=== PATIENT | female | born 2005 | race African-American/Black ===

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

== ENCOUNTER 2023-03-05 12:46 | Outpatient (AMB) | payer MEDICAID, SELFPAY ==
[2023-03-05 12:48] VITALS: BP 137/63; PULSE 80; TEMP 36; O2SAT 97; BMI 28.7
--- NOTE | 2023-03-05 12:48 | A.OFFVIS_ITS ---
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 Patient reports that in the end of June,, she had preprandial abdominal pain that may have gotten better with eating, but when the pain persisted, she came to the emergency department and was evaluated. Ultrasound at that time demonstrated a mobile gallstone, however her labs and LFTs were normal, so she was discharged. The following week, on 07/16/22, she experienced another episode of pain which she felt was after eating, she was seen in the emergency department, and admitted to the hospitalist service with surgical consultation. Because she had eaten, her ultrasound at that time did not clearly defined gallstones so a CCK HIDA was ordered which the patient reports she slept through and it demonstrated a normal ejection fraction absolutely no abdominal pain from the CCK injection. She was given a diet and discharged with follow-up to me. The patient denies interval change in notes no further episodes of abdominal pain. She noted that she was suffering from hair loss and question whether she could have gastritis related to the stress that was occurring academically at that time. 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 She notes that she is trying to eat healthy but having no pain or problems related to fried or fatty foods. Patient denies any episodes of pain since that time. She notes coronary artery disease and cholesterol issues affecting her father but no one else in the family has a history of gallbladder disease. The patient continues to deny any abdominal pain and otherwise denies interval change to her health history. She reports the usual stressors of school and is in nursing school at this time but is having no additional episodes of abdominal pain. [facility] Social History Alcohol intake: never Advance Directives Date on File: 07/19/22 service: No Review of Systems Const All systems reviewed & are unremarkable except as noted in HPI and below Reports as per HPI Physical Exam Vital Signs: Last Vital Signs Temp 96.8 F 03/05/23 12:48 Pulse 80 03/05/23 12:48 BP 137/63 03/05/23 12:48 Pulse Ox 97 03/05/23 12:48 Oxygen Delivery Method Room Air 03/05/23 12:48 BMI result Body Mass Index 28.7 On exam, the patient is nontoxic and in good spirits Her sclerae anicteric She is in no acute respiratory distress Abdomen is soft with no tenderness. Results Reviewed Results Reviewed: Diagnostic imaging 07/08/2022 ultrasound demonstrated small mobile gallstones and a 4 mm CBD 07/17/2022 ultrasound demonstrated a contracted gallbladder with no pericholecystic fluid. 2mm CBD & sludge versus stone was present CCK HIDA from 07/17/2022 showed a normal ejection fraction of 51% and the patient noted that she had absolutely no pain and fell asleep during the study, CCK did not evoke an episode of biliary colic Repeat ultrasound from 09/01/2022 shows unchanged gallbladder polyps vs adherent gallstones and a 3 mm common bile duct. 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 It is certainly possible but we did review the fact that she has gallstones and if she develops postprandial colicky pain, she should contact me. She added that she has been eating fried foods, fatty foods such as ice cream and pizza and has had no ill effects. Options of scheduling a follow-up in 2-3 months verses p.r.n. phone call for return of pain were offered and the patient would prefer to call if needed. She is given a card and will contact me if she has need to be re-evaluated. Coding Level of Care Code Est Pt Level 4 (71341) Diagnoses Gall stones K80.20 Gallbladder polyp K82.4 Abdominal pain, RUQ R10.11
== END 2023-03-05 13:12 | disposition home or self-care (01) ==
PROVIDERS: Visit Provider Surgery
DX: K80.20 Calculus of gallbladder without cholecystitis without obstruction (principal); R10.11 Right upper quadrant pain
CPT/HCPCS: 99214

== ENCOUNTER → 2023-03-05 12:46 | Outpatient (BNVA) | payer MEDICAID, SELFPAY | PROVIDERS: Visit Provider Surgery | DX: K80.20 Calculus of gallbladder without cholecystitis without obstruction (principal); K82.4 Cholesterolosis of gallbladder; R10.11 Right upper quadrant pain | CPT/HCPCS: 99212 ==

== ENCOUNTER 2023-03-16 09:48 | Outpatient (REF) | payer MEDICAID, SELFPAY ==
[2023-03-16 12:56] LABS: CT PCR NOT DETECTED (Not Detect.); NG PCR NOT DETECTED (Not Detect.)
[2023-03-19 16:19] LABS: TS Negative Control Passed; TS Panel A 0; TS Panel B 2; TS Positive Control Passed; TSpotTB Negative (Negative)
== END 2023-03-16 09:49 | disposition home or self-care (01) ==
LOC: HO.HHCL 09:48
PROVIDERS: Visit Provider Family Medicine
DX: Z11.3 Encounter for screening for infections with a predominantly sexual mode of transmission (principal); Z11.1 Encounter for screening for respiratory tuberculosis
CPT/HCPCS: 0353U; 86481

== ENCOUNTER 2024-01-21 10:23 | Outpatient (AMB) | payer MEDICAID, SELFPAY ==
[2024-01-21 10:27] VITALS: BP 128/73; PULSE 97; BMI 33.5
--- NOTE | 2024-01-21 10:27 | A.OFFVIS_ITS ---
Vital Signs 01/21/24 10:27 Height 5 ft 4 in Weight 195 lb BMI 33.5 BP 128/73 Blood Pressure Location Rt brachial Position Sitting Pulse 97 Intake Visit Reasons: appendicitis Intake Note: Patient here for appendicitis. Was visiting parents in [place]. Developed severe abdominal pain. Went to ER on 01-18-24. Patient c/o: pain has subsided. Was treated with amoxicillin. 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 She was treated conservatively with antibiotics patient lives in this area and now presents here for further evaluation. She has complete resolution of her abdominal symptoms. She has tolerating a diet. He is having regular bowel habits. She has completing a course of antibiotics. Chart was reviewed the patient evaluate [facility] Social History Alcohol intake: never Advance Directives Date on File: 07/19/22 service: No Physical Exam Vital Signs: Last Vital Signs Pulse 97 01/21/24 10:27 BP 128/73 01/21/24 10:27 BMI result Body Mass Index 33.5 GI Other: Abdomen mildly corpulent, soft, completely benign. Assessment & Plan Assessment & Plan (1) Abdominal pain: Code(s): R10.9 - Unspecified abdominal pain Category: Surgical Plan Patient is doing well status post treatment for early appendicitis conservatively from [place]. Patient and I reviewed that a proximally 30 % of time the appendicitis may recurrent should this happen, she has been instructed to call the office or go to the ER. All questions answered. Patient will otherwise follow-up p.r.n.. Coding Level of Care Code New Pt Level 4 (17818) Diagnoses Abdominal pain R10.9
== END 2024-01-21 10:35 | disposition home or self-care (01) ==
PROVIDERS: PCP Family Medicine; Referring Provider Family Medicine; Visit Provider Surgery
DX: R10.9 Unspecified abdominal pain (principal)
CPT/HCPCS: 99203

== ENCOUNTER → 2024-01-21 10:23 | Outpatient (BNVA) | payer MEDICAID, SELFPAY | PROVIDERS: PCP Family Medicine; Visit Provider Surgery | DX: R10.9 Unspecified abdominal pain (principal) | CPT/HCPCS: 99202 ==

== ENCOUNTER 2024-03-27 16:27 | Outpatient (REF) | payer MEDICAID, SELFPAY ==
[2024-03-27 17:58] LABS: Bacterial Vaginosis PCR NEGATIVE (Negative); Candida Group PCR NOT DETECTED (Not Detect); Candida glab krusei PCR NOT DETECTED (Not Detect); Trichomonas vaginalis PCR NOT DETECTED (Not Detect)
== END 2024-03-27 16:28 | disposition home or self-care (01) ==
LOC: HO.HHCLNP 16:27
PROVIDERS: Visit Provider Internal Medicine
DX: N89.8 Other specified noninflammatory disorders of vagina (principal)
CPT/HCPCS: 0352U

== ENCOUNTER 2024-06-12 12:29 | Outpatient (REF) | payer MEDICAID, SELFPAY ==
[2024-06-13 15:10] LABS: H Pylori Breath Test Positive (Negative)
== END 2024-06-12 12:30 | disposition home or self-care (01) ==
LOC: HO.LNP 12:29
PROVIDERS: PCP Family Medicine; Visit Provider Nurse Practitioner
DX: R10.13 Epigastric pain (principal); R14.0 Abdominal distension (gaseous); K21.9 Gastro-esophageal reflux disease without esophagitis
CPT/HCPCS: 83013; 99212

== ENCOUNTER 2024-06-12 12:29 | Outpatient (AMB) | payer MEDICAID, SELFPAY ==
[2024-06-12 12:32] VITALS: BP 113/61; PULSE 80; BMI 33.3
--- NOTE | 2024-06-12 12:32 | MHC.OFFVIS ---
Vital Signs 06/12/24 12:32 Height 5 ft 4 in Weight 194 lb 0.108 oz BMI 33.3 BP 113/61 Blood Pressure Location Rt brachial Position Sitting Pulse 80 Intake Visit Reasons: abdominal pain Intake Note: Jenny presents to office for evaluation and management of abdominal pain. CC: Patient c/o epigastric pain on and off, pain scale when it happens is 8/10. Patient reports having occasional acid reflux, diarrhea sometimes, and abdominal bloating. 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 She is referred by [facility]. PMX History of appendicitis Gallbladder polyps with negative HIDA scan * SURGICAL HISTORY Pt denies * ALLERGIES: NKDA * [employer] LABS: None since 2021 US ABD 09/01/22 FINDINGS: PANCREAS: Visualized portions of the pancreas are unremarkable. The pancreatic tail is obscured by bowel gas. LIVER: Normal. The liver is normal in size. The liver contour is normal. Parenchymal echogenicity is normal. No focal hepatic lesion. There is no intrahepatic biliary duct dilatation seen. GALLBLADDER: Few tiny gallbladder polyps measuring up to 3 mm The gallbladder is physiologically distended without evidence of stones, sludge, wall thickening or pericholecystic fluid. COMMON BILE DUCT: Normal in caliber measuring 0.3 cm in diameter. RIGHT KIDNEY: Normal. No hydronephrosis. No renal calculi or focal parenchymal lesions. The kidney measures 9.8 cm in maximum dimension. FREE FLUID: None. US/US abdomen limited IMPRESSION: Few tiny gallbladder polyps measuring up to 3 mm new from prior. If patient has no risk factors for gallbladder malignancy or symptoms attributable to the gallbladder, follow-up recommendations are repeat ultrasound at one, 3, and 5 years. If patient has symptoms attributable the gallbladder, and there are no alternative causes for the symptoms consider surgical consultation. If patient has risk factors for primary gallbladder malignancy recommend follow-up ultrasound at 6 months, and 1, 2, 3, 4, and 5 years. HIDA SCAN 07/17/22 IMPRESSION: Visualization of the gallbladder is evidence of a patent cystic duct and strong evidence against the diagnosis of acute cholecystitis. The common bile duct is patent. Gallbladder emptying and ejection fraction are normal. Liver function appears normal. TODAY'S VISIT Onset about 2 years ago she started having severe stomach pain and she was told she had gallstones in the ER. But they did not feel this was the cause of the pain, but she was referred to a surgeon and had a negative HIDA scan. Then she did not have any pain for 2 years. This past summer she had acute appendicitis in [place]. She had N/V and pain in [place] that moved. Surgery was recommended but she wanted to get back to [place] before having it. She was tx'ed with an abx and she again saw a surgeon and she was told that she should not be worried unless the pain returns s/p abx. More recently the pain has been more in the high epigastric area and will start when she begins eating and last for few minutes. It is described as sharp and stabbing initially and sometimes if she waits a few minutes for it to subside she will be able to continue eating but not always. She can identify too many particular foods that set it off although she has noted that it is worse if she drinks coffee on an empty stomach. She has been trying to eat more healthfully because she was worried about the possible gallstones so she has been eating more vegetables salads and staying away from the junk food. She does not like to eat a lot of meat but she does eat some. She also has quite a lot of abdominal bloating that occurs intermittently. When it happens her stomach will become bloated periumbilically and will be quite hard and sore to the touch. She admits that she has quite a lot of trouble ?releasing my gases.? In that she has not having flatulence or burping very often. Sometimes she will take a seltzer water or something similar to try to expedite the process. At time she will also have global cramping and diarrhea likely mediated by the gas trapping. There has been no new medications, no other severe diet changes, and no severe life stresses beyond the stress of being a college student that are contributing factors. There is no known family history of similar GI problems although there is a family history of colon cancer in her grandfather quite later in life. To date, she has not yet been educated about the GERD diet although she is aware that spicy foods sodas and coffee certainly are something that are worse for this situation. She also has not been educated about FODMAP foods to try to find the triggers that are causing her bloating and gas trapping. We will get her information on both of these. For now I think were going to order a barium swallow so we can make sure there is no physiologic/anatomic problems that are severe contributing to this and will also get an upper endoscopy along with an H pylori breath test. She has not had a trial of any acid reducing medication so will start her on famotidine and she can take this as needed and this will help us determine, if it is helpful, if were on the right track thinking that this is acid reflux. While I appreciate the fact that she has had some abnormal findings in terms of a possible inflamed appendix and possible gallstones we need to be careful not to assume that these are the root causes of what she is experiencing. I am not completely convinced since the symptoms really do not correlate well to traditional cholecystitis or appendicitis. Her normal bowel movement is twice a day and this really has not deviated. She has gained weight recently which is somewhat to be expected going through school and this could be contributing to GERD as well. ROV 4 weeks PFSH Medical History Abdominal pain, RUQ Surgical History Abdominal pain No pertinent past surgical history Family History Paternal Grandfather Colon cancer Social History Alcohol intake: never Patient Tobacco Use Status: Never used Tobacco Advance Directives Date on File: 07/19/22 service: No Review of Systems Const Denies fatigue, Denies fever(s), Denies night sweats, Denies poor appetite, Reports weight gain and Denies weight loss ENT Reports Normal hearing present, Denies dental pain, Denies dysphagia, Denies hearing loss, Denies mouth pain, Denies odynophagia, Denies throat swelling, Denies tongue swelling and Reports other (Dentition adequate) Card Reports no additional complaints Resp Reports no additional complaints GI Details: Denies abdominal pain, Denies melena, Reports bloating, Denies hematochezia, Denies constipation, Denies GI cramping, Denies dysphagia, Denies excessive flatus, Denies early satiety, Reports heartburn, Denies diarrhea, Denies nausea, Denies odynophagia, Denies vomiting and Denies hematemesis Skin/Breast Denies pruritus, Denies lesions, Denies rash and Denies jaundice Neuro Reports Normal hearing present and Denies Abnormal speech present Endo Denies fatigue Aller/Immun Denies throat swelling and Denies tongue swelling Physical Exam Vital Signs: Last Vital Signs Pulse 80 06/12/24 12:32 BP 113/61 06/12/24 12:32 BMI result Body Mass Index 33.3 Const General: cooperative, no acute distress, well developed and well groomed Nutritional Appearance: well nourished and overweight Orientation/consciousness: oriented to person, oriented to place and oriented to time Limitations: No language barrier HEENT Head: Yes normocephalic and Yes atraumatic Eyes General: appearance normal, both eyes and all related structures Pupils: Equal, round and reactive pupils present Neck Neck: Yes normal visual inspection and Yes no lymphadenopathy Thyroid: Thyroid normal Resp Effort & Inspection: normal respiratory effort and able to speak in complete sentences Auscultation: clear to auscultation bilaterally Cardio Rate: regular rate Rhythm: regular rhythm Heart sounds: Normal, physiologic split S2 sound present Peripheral pulses: radial pulses present and posterior tibial pulses present GI Inspection: No distended, No Abdominal panniculus present and Yes obesity Palpation (GI): Soft to palpation, nontender, no guarding, not rigid and No hepatosplenomegaly present Percussion: Yes normal to percussion Auscultation: normal bowel sounds Rectal Exam - Female: deferred Skin General skin exam: no rashes or lesions noted, turgor normal, skin not dry, no jaundice, No spider nevi and no striae Rashes: no rashes Nails: normal Neuro General: oriented to person, oriented to place and oriented to time Cranial nerves: Yes Equal, round and reactive pupils present and Yes Normal hearing present Speech: No Abnormal speech present Extrem General: Yes normal to inspection, No clubbing, No cyanosis and No edema Psych Appearance: grossly normal and well kempt Mental Status: mental status grossly normal Speech and movement: Normal speech and movement present Affect: normal affect Attitude: cooperative Thought process: Normal thought process present and not confabulating Thought content: Normal thought content present Insight: Fair insight present (Psych) Judgement: Fair judgement present (Psych) Results Reviewed Results Reviewed: US ABD 09/01/22 FINDINGS: PANCREAS: Visualized portions of the pancreas are unremarkable. The pancreatic tail is obscured by bowel gas. LIVER: Normal. The liver is normal in size. The liver contour is normal. Parenchymal echogenicity is normal. No focal hepatic lesion. There is no intrahepatic biliary duct dilatation seen. GALLBLADDER: Few tiny gallbladder polyps measuring up to 3 mm The gallbladder is physiologically distended without evidence of stones, sludge, wall thickening or pericholecystic fluid. COMMON BILE DUCT: Normal in caliber measuring 0.3 cm in diameter. RIGHT KIDNEY: Normal. No hydronephrosis. No renal calculi or focal parenchymal lesions. The kidney measures 9.8 cm in maximum dimension. FREE FLUID: None. US/US abdomen limited IMPRESSION: Few tiny gallbladder polyps measuring up to 3 mm new from prior. If patient has no risk factors for gallbladder malignancy or symptoms attributable to the gallbladder, follow-up recommendations are repeat ultrasound at one, 3, and 5 years. If patient has symptoms attributable the gallbladder, and there are no alternative causes for the symptoms consider surgical consultation. If patient has risk factors for primary gallbladder malignancy recommend follow-up ultrasound at 6 months, and 1, 2, 3, 4, and 5 years. HIDA SCAN 07/17/22 IMPRESSION: Visualization of the gallbladder is evidence of a patent cystic duct and strong evidence against the diagnosis of acute cholecystitis. The common bile duct is patent. Gallbladder emptying and ejection fraction are normal. Liver function appears normal. Assessment & Plan Assessment & Plan (1) Epigastric pain: Code(s): R10.13 - Epigastric pain Category: Medical (2) Abdominal bloating: Code(s): R14.0 - Abdominal distension (gaseous) Category: Medical (3) GERD (gastroesophageal reflux disease): Code(s): K21.9 - Gastro-esophageal reflux disease without esophagitis Category: Medical Plan Onset about 2 years ago she started having severe stomach pain and she was told she had gallstones in the ER. But they did not feel this was the cause of the pain, but she was referred to a surgeon and had a negative HIDA scan. Then she did not have any pain for 2 years. This past summer she had acute appendicitis in [place]. She had N/V and pain in [place] that moved. Surgery was recommended but she wanted to get back to [place] before having it. She was tx'ed with an abx and she again saw a surgeon and she was told that she should not be worried unless the pain returns s/p abx. More recently the pain has been more in the high epigastric area and will start when she begins eating and last for few minutes. It is described as sharp and stabbing initially and sometimes if she waits a few minutes for it to subside she will be able to continue eating but not always. She can identify too many particular foods that set it off although she has noted that it is worse if she drinks coffee on an empty stomach. She has been trying to eat more healthfully because she was worried about the possible gallstones so she has been eating more vegetables salads and staying away from the junk food. She does not like to eat a lot of meat but she does eat some. She also has quite a lot of abdominal bloating that occurs intermittently. When it happens her stomach will become bloated periumbilically and will be quite hard and sore to the touch. She admits that she has quite a lot of trouble ?releasing my gases.? In that she has not having flatulence or burping very often. Sometimes she will take a seltzer water or something similar to try to expedite the process. At time she will also have global cramping and diarrhea likely mediated by the gas trapping. There has been no new medications, no other severe diet changes, and no severe life stresses beyond the stress of being a college student that are contributing factors. There is no known family history of similar GI problems although there is a family history of colon cancer in her grandfather quite later in life. To date, she has not yet been educated about the GERD diet although she is aware that spicy foods sodas and coffee certainly are something that are worse for this situation. She also has not been educated about FODMAP foods to try to find the triggers that are causing her bloating and gas trapping. We will get her information on both of these. For now I think were going to order a barium swallow so we can make sure there is no physiologic/anatomic problems that are severe contributing to this and will also get an upper endoscopy along with an H pylori breath test. She has not had a trial of any acid reducing medication so will start her on famotidine and she can take this as needed and this will help us determine, if it is helpful, if were on the right track thinking that this is acid reflux. While I appreciate the fact that she has had some abnormal findings in terms of a possible inflamed appendix and possible gallstones we need to be careful not to assume that these are the root causes of what she is experiencing. I am not completely convinced since the symptoms really do not correlate well to traditional cholecystitis or appendicitis. Her normal bowel movement is twice a day and this really has not deviated. She has gained weight recently which is somewhat to be expected going through school and this could be contributing to GERD as well. ROV 4 weeks Orders: Orders H Pylori Breath Test 06/12/24 R10.13 - Epigastric pain, R14.0 - Abdominal distension (gaseous) Comprehensive Met. Panel 06/13/24 R10.13 - Epigastric pain, R14.0 - Abdominal distension (gaseous) EGD - GI Use Only 06/12/24 R10.13 - Epigastric pain, R14.0 - Abdominal distension (gaseous) [place] barium swallow 06/12/24 R10.13 - Epigastric pain, R14.0 - Abdominal distension (gaseous) Complete Blood Count Auto Diff 06/13/24 R10.13 - Epigastric pain, R14.0 - Abdominal distension (gaseous) Medications: New famotidine (Pepcid) 40 mg PO DAILY 30 tabs 6RF K21.9 - Gastro-esophageal reflux disease without esophagitis Coding Level of Care Code Est Pt Level 4 (06315) Diagnoses Epigastric pain R10.13 Abdominal bloating R14.0 GERD (gastroesophageal reflux disease) K21.9
== END 2024-06-12 13:58 | disposition home or self-care (01) ==
LOC: HO.HGI 12:30
PROVIDERS: PCP Family Medicine; Visit Provider Nurse Practitioner
DX: R10.13 Epigastric pain (principal); R14.0 Abdominal distension (gaseous); K21.9 Gastro-esophageal reflux disease without esophagitis
CPT/HCPCS: 99214

== ENCOUNTER 2024-06-13 16:24 | Outpatient (REF) | payer MEDICAID, SELFPAY ==
[2024-06-13 16:41] LABS: MANUAL DIFF FLAG NO
[2024-06-13 16:55] LABS: Basophils Percent Auto 0.5 % (0-2); Eosinophils Absolute Auto 0.1 X10*3/uL (0.0-0.4); Eosinophils Percent Auto 1.5 % (0-4); Hematocrit 40.4 % (37.0-47.0); Hemoglobin 12.9 g/dl (12.0-16.0); Imm Gran Abs Auto 0.02 X10*3/uL (0.00-0.03); Imm Gran Pct Auto 0.3 % (0.0-0.4); Lymphocytes Absolute Auto 3.1 X10*3/uL (1.2-4.9); Lymphocytes Percent Auto 50.6 % (20-40); Mean Corpuscular HGB Conc 31.9 g/dl (31.0-35.0); Mean Corpuscular Hemoglobin 26.5 pg (27.0-33.0); Monocytes Absolute Auto 0.4 X10*3/uL (0.1-1.2); Monocytes Percent Auto 6.6 % (2-11); Neutrophils Absolute Auto 2.5 x10*3/uL (2.0-8.3); Neutrophils Percent Auto 40.5 % (45-73); Platelet Count 266 X10*3/uL (160-400); Red Blood Count 4.87 X10*6/uL (4.20-5.50); Red Cell Distribution Width 12.9 % (11.0-16.0); White Blood Count 6.2 X10*3/uL (4.8-10.8)
[2024-06-13 17:32] LABS: Alanine Aminotransferase 12 U/L (0-31); Albumin Level 4.2 g/dL (3.5-5.0); Alkaline Phosphatase 52 U/L (39-117); Anion Gap 14 (12-20); Aspartate Amino Transferase 16 U/L (5-31); Bilirubin Total 0.3 mg/dL (0.0-1.0); Blood Urea Nitrogen 13 mg/dL (9-16); Calcium 9.2 mg/dL (8.4-10.2); Carbon Dioxide 23 mmol/L (22-29); Chloride 109 mmol/L (96-108); Estimated Glomerular Filt Rate > 60; Glucose Random 93 mg/dL (60-115); Potassium 4.4 mmol/L (3.3-5.1); Sodium 142 mmol/L (135-145); Total Protein 7.6 g/dL (6.5-8.0)
== END 2024-06-13 16:25 | disposition home or self-care (01) ==
LOC: HO.LAB 16:24
PROVIDERS: PCP Family Medicine; Visit Provider Nurse Practitioner
DX: R10.13 Epigastric pain (principal); R14.0 Abdominal distension (gaseous)
CPT/HCPCS: 36415; 80053; 85025

== ENCOUNTER → 2024-07-16 15:00 | Outpatient (BNVA) | payer MEDICAID, SELFPAY | PROVIDERS: PCP Family Medicine; Visit Provider Nurse Practitioner ==

== ENCOUNTER → 2024-07-16 15:00 | Outpatient (BNVA) | payer MEDICAID, SELFPAY | PROVIDERS: PCP Family Medicine; Visit Provider Nurse Practitioner ==

== ENCOUNTER 2025-04-29 14:59 | Outpatient (REF) | payer MEDICAID, SELFPAY ==
--- OUTSIDE RECORDS SUMMARY | 2025-04-29 14:15 | XMS_ITS | Encounter Summary ---
Author Organization [employer] Address [address] [facility] 7 [place] [address] Care Team Providers Care Yardage Estimator Name Role Phone Taty Hudson MD Primary Care Provider [phone]- [phone] November Reason for Visit * Reason Comments Annual Exam Encounter Details Date Type Department Care Team (Late st Contact Info) Description 04/29/2025 2:15 PM EDT Office Visit [facility] [address] [place] [address] Taty Hudson MD [address] [place], [place] [phone] Pap smear for cervical cancer screening (Primary Dx); Generalized abdominal pain; Other specified health status; Routine screening for STI (sexually transmitted infection); Dietary counseling; Exercise counseling; IUD (intrauterine device) in place; Iron deficiency; Screening cholesterol level; Bacterial vaginosis Social History Tobacco Use Types Packs/Day Years Used Date Smoking Tobacco: Never Passive Smoke Exposure: Never Smokeless Tobacco: Never Alcohol Use Standard Drinks/Week Comments Never 0 (1 standard drink = 0.6 oz pur e alcohol) Depression Answer Date Recorded Patient Health Questionnaire-9 Score 0 04/29/2025 Patient Health Questionnaire-9 Score 0 04/29/2025 Last PHQ-9: Questionnaire Data Not on file 0 04/29/2025 Housing Stability Answer Date Recorded What is your housing situation today? I have marcus martin 04/29/[address] you li ve. Do you have problems with any of the following? None of the above 04/29/2025 Food Insecurity Answer Date Recorded Within the past 12 months, y ou worried that your food would run out before you got money to buy more: Never True 04/29/2025 Within the past 12 months,th e food you bought just didn't last and you didn't have enough money to get more: Never True Transportation Answer Date Recorded In the past 12 months, has l ack of transportation kept you from medical appts, meetings, work or from getting things needed for daily living? No 04/29/2025 Utilities Answer Date Recorded In the past 12 months, has t he electric, gas, oil or water company threatened to shut off services in your home? No 04/29/2025 Depression Answer Date Recorded Patient Health Questionnaire-2 Score 0 04/29/2025 Internet Access Answer Date Recorded Internet Access Q1 No 04/29/2025 Internet Access Q2 I do not want or need it 04/13 Comments No Intention Date Recorded No desire to become (finding) 0 04/29/2025 Sex and Gender Information Value Date Recorded Sex Assigned at Female 06/12/2022 10:31 AM EDT Legal Sex Female 10:31 AM EDT Gender Identity Female 06/12/2022 10:31 AM EDT Sexual Orientation Straight 06/12/2022 10 :31 AM EDT documented as of this encounter Last Filed Vital Signs Vital Sign Reading Time Taken Comments Blood Pressure 139/80 04/29/2025 2:02 PM EDT Pulse 93 04/29/2025 2:02 PM EDT Temperature 37.1 C (98.7 F) 04/29/2025 2:02 PM EDT Respiratory Rate 19 04/29/2025 2:02 PM EDT Oxygen Saturation 98% 04/29/2025 2:02 PM EDT Inhaled Oxygen Concentration - - Weight 84.6 kg (186 lb 6.4 oz) 04/29/2025 2:02 P M EDT Height 162.6 cm (5' 4 ) 04/29/2025 2:02 PM EDT Body Mass Index 32 04/29/2025 2:02 PM EDT documented in this encounter Functional Status * Over the past 2 weeks, how often have you been bothered by any of the following problems? Question Answer Date of Assessment Author Little interest or pleasure in doing things Not at all 04/29/2025 3:04 PM EDT Milton Hudson MD Feeling down, depressed, or hopeless Not at all 04/29/2025 3:04 PM LAVONNET Milton Hudson MD Patient Health Questionnaire-2 Score 0 04/29/2025 3:04 PM EDT Lilian Hudson MD * Question Answer Date of Assessment Author Trouble falling or staying asleep, or sleeping too much Not at all 04/29/2025 3:04 PM LAVONNET Taty Hudson MD Feeling tired or having little energy Not at all 04/29/2025 3:04 PM LAVONNET Milton Hudson MD Poor appetite or overeating Not at all 04/29/2025 3: 04 PM EDT Taty Hudson MD Feeling bad about yourself - or that you are a failure or have let yourself or your family down Not at all 04/29/2025 3:04 PM Milton Stafford MD Trouble concentrating on things, such as reading the newspaper or watching television Not at all 04/29/2025 3:04 PM LAVONNET Milton Hudson MD Moving or speaking so slowly that other people could have noticed? Or the opposite - being so fidgety or restless that you have been moving around a lot more than usual. Not at all 04/29/2025 3:04 PM EDT Taty Lee MD Thoughts that you would be better off or hurting yourself in some way Not at all 04/29/2025 3:04 PM EDT Emerson Hudson MD Patient Health Questionnaire-9 Score 0 04/29/2025 3:04 PM EDT Lilian Hudson MD * Over the last 2 weeks, how often have you been bothered by any of the following problems? Question Answer Date of Assessment Author Feeling nervous, anxious, or on edge 0 04/29/2025 2:29 PM EDT Lesia Blanton MA Not being able to stop or co ntrol worrying 0 04/29/2025 2:29 PM EDT Lesia Blanton MA Worrying too much about diff erent things 0 04/29/2025 2:29 PM EDT Lesia Blanton MA Trouble relaxing 0 04/29/2025 2:29 PM EDT Lesia Oneal MA Being so restless that it is hard to sit still 0 04/29/2025 2:29 PM EDT Lesia Blanton MA Becoming easily annoyed or irritable 0 04/29/2025 2:29 PM EDT Lesia Blanton MA Feeling afraid as if somethi ng awful might happen 0 04/29/2025 2:29 PM EDT Lesia Blanton MA ROC-7 Total Score 0 04/29/2025 2:29 PM EDT Lesia Blnaton MA documented as of this encounter Miscellaneous Notes * Assessment & Plan Note - Darren Munoz - 04/29/2025 2:15 PM EDTAssociated Problem(s): Generalized abdominal pain * Assessment & Plan Note - Darren Munoz - 04/29/2025 2:15 PM EDTAssociated Problem(s): Other specified health status * Assessment & Plan Note - Darren Munoz - 04/29/2025 2:15 PM EDTAssociated Problem(s): Pap smear for cervical cancer screening Pap with HPV testing done STI testing offered, PreP offered Preventative care and harm reduction discussed documented in this encounter Plan of Treatment Scheduled Orders Name Type Priority Associated Diagnoses Orde r Schedule Hepatitis C Antibody with Reflex to HCV, RNA, Quantitative, Real-Time PCR Lab Routine Routine screening for STI (sexually transmitted infection) Expected: 04/29/2025 (Approximate), Expires: 04/29/2026 HIV-1/2 Antigen and Antibodies, Fourth Generation, with Reflexes Lab Routine Routine screening for STI (sexually transmitted infection) Expected: 04/29/2025 (Approximate), Expires: 04/29/2026 Syphilis Screen Lab Routine Routine screening for STI (sexually transmitted infection) Expected: 04/29/2025 (Approximate), Expires: 04/29/2026 Pap Smear Pathology and Cytology Routine Pap smear for cervical cancer screening Ordered: 04/29/2025 STI testing add on (NG, CT, Trich) Pathology and Cytology Routine Routine screening for STI (sexually transmitted infection) Ordered: 04/29/2025 documented as of this encounter Procedures Procedure Name Priority Date/Time Associated Diagnosis Comments CBC Routine 04/29/2025 3:07 PM EDT Iron deficiency FERRITIN Routine 04/29/2025 3:07 PM EDT Iron deficiency LIPID PANEL, STANDARD Routine 04/29/2025 3:07 PM EDT Screening cholesterol level documented in this encounter Results * Ferritin (04/29/2025 3:07 PM EDT) Ferritin 34 10 - 122 ng/mL [facility] Blood Venous blood specimen / Unknown 04/29/2025 3:07 PM EDT 04/29/2025 4:03 PM EDT Taty Hudson MD LAB BLOOD ORDERABLES Final Result [facility] [address] [place] [phone] * (ABNORMAL) CBC (04/29/2025 3:07 PM EDT) White Blood Count 4.8 4.8 - 10.8 X10*3/uL [facility] Red Blood Count 4.48 4.20 - 5.50 X10*6/uL [facility] Hemoglobin 11.6(L) 12.0 - 16.0 g/dl [facility] Hematocrit 37.0 37.0 - 47.0 % [facility] Mean Corpuscular Volume 82.6 80.0 - 98.0 fL [facility] Mean Corpuscular Hemoglobin 25.9(L) 27.0 - 33.0 pg [facility] Mean Corpuscular HGB Conc 31.4 31.0 - 35.0 g/dl [facility] Red Cell Distribution Width 12.5 11.0 - 16.0 % [facility] Platelet Count 211 160 - 400 X10*3/uL [facility] Mean Platelet Volume 13.0(H) 9.4 - 12.3 fL [facility] NRBC Pct Auto 0.0 0.0 - 0.2 /100WBC [facility] NRBC Abs Auto 0.000 0.0 - 0.012 X10*3/uL [facility] Blood Venous blood specimen / Unknown 04/29/2025 3:07 PM EDT 04/29/2025 4:03 PM EDT us Taty Hudson MD LAB BLOOD ORDERABLES Final Result [facility] [address] [place] [phone] * (ABNORMAL) Lipid Panel, Standard (04/29/2025 3:07 PM EDT) Triglycerides 58 <150 mg/dL [facility] Comment:Desirable Triglyceri de: less than 150 mg/dLBorderline High Triglyceride 150-199 mg/dLHigh Triglyceride: 200-499 mg/dLVery High Triglyceride: greater than or equal to 5OO mg/dL Cholesterol 162 <200 mg/dL [facility] Comment:Desirable Cholestero l: less than 200 mg/dLBorderline High Cholesterol: 200-239 mg/dLHigh Cholesterol: greater than 239 mg/dL LDL Cholesterol Calculated 110(H) <100 mg/dL [facility] Comment:Desirable LDL: less than 100 mg/dLNear Optimal/Above Optimal LDL: 110- 129 mg/dLBorderline High LDL: 130-159 mg/dLHigh LDL: 160-189 mg/dLVery High LDL: greater than or equal to 190 mg/dL HDL Cholesterol 41 >40 mg/dL [facility] Comment:Desirable HDL: great er than 40 mg/dL Note: This HDL assay may give artificially low results in patients with liver disease. Blood Venous blood specimen / Unknown 04/29/2025 3:07 PM EDT 04/29/2025 4:03 PM EDT us Taty Hudson MD LAB BLOOD ORDERABLES Final Result [facility] [address] [place] [phone] documented in this encounter Visit Diagnoses Diagnosis Pap smear for cervical cancer screening- Primary Screening for malignant neoplasm of the cervix Generalized abdominal pain Abdominal pain, generalized Other specified health status Routine screening for STI (sexually transmitted infection) Screening examination for venereal disease Dietary counseling Dietary surveillance and counseling Exercise counseling IUD (intrauterine device) in place Presence of intrauterine contraceptive device Iron deficiency Disorders of iron metabolism Screening cholesterol level Screening for lipoid disorders Bacterial vaginosis Unspecified vaginitis and vulvovaginitis documented in this encounter Additional Health Concerns Assessment Noted Time PHQ-9 Depression Total Score: 0 04/29/20 25 3:04 PM EDT documented as of this encounter Care Teams Yardage Estimator Relationship Specialty Start Date End Date Taty Hudson MD [address] [place] [id number] PCP - General Family Medicine 09/16/[address] [place] [address] Gastroenterology 08/02/24 documented as of this encounter
[2025-04-29 16:25] LABS: Hematocrit 37.0 % (37.0-47.0); Hemoglobin 11.6 g/dl (12.0-16.0); Mean Corpuscular HGB Conc 31.4 g/dl (31.0-35.0); Mean Corpuscular Hemoglobin 25.9 pg (27.0-33.0); Mean Corpuscular Volume 82.6 fL (80.0-98.0); NRBC Abs Auto 0.000 X10*3/uL (0.0-0.012); NRBC Pct Auto 0.0 /100WBC (0.0-0.2); Platelet Count 211 X10*3/uL (160-400); Red Blood Count 4.48 X10*6/uL (4.20-5.50); White Blood Count 4.8 X10*3/uL (4.8-10.8)
[2025-04-29 16:39] LABS: Cholesterol 162 mg/dL (<200); HDL Cholesterol 41 mg/dL (>40); Triglycerides 58 mg/dL (<150)
[2025-04-29 16:55] LABS: Ferritin 34 ng/mL (10-122)
--- OUTSIDE RECORDS SUMMARY | 2025-04-29 18:32 | XMS_ITS | Encounter Summary ---
Author Organization [employer] Address [address] [facility] [address] [address] [place] [address] Care Team Providers Care Photographic Process Attendant Name Role Phone Taty Hudson MD Primary Care Provider [phone]- [phone] November Unavailable Encounter Details Date Type Department Care Team (Latest Contact Info) Description 04/29/2025 Travel Social History Tobacco Use Types Packs/Day Years [...] is your housing situation today? I have marcusgrant martin 04/29/[address] you [...] want or need it 04/13 Comments No Sex and Gender Information Value Date Recorded Sex Assigned at Female 06/12/2022 10:31 AM EDT Legal Sex Female 10:31 AM EDT Gender Identity Female 06/12/2022 10:31 AM EDT Sexual Orientation Straight 06/12/2022 10 :31 AM EDT documented as of this encounter Functional Status * Over the past 2 weeks, how often have you been bothered by any of the following problems? Question Answer Date of Assessment Author Little interest or pleasure in doing things Not at all 04/29/2025 3:04 PM EDT Milton Hudson MD Feeling down, depressed, or hopeless Not at all 04/29/2025 3:04 PM EDT Milton Hudson MD Patient Health Questionnaire-2 Score 0 04/29/2025 3:04 PM EDT Lilian Hudson MD * Question Answer Date of Assessment Author Trouble falling or staying asleep, or sleeping too much Not at all 04/29/2025 3:04 PM Taty Stafford MD Feeling tired or having little energy Not at all 04/29/2025 3:04 PM LAVONNET Milton Hudson MD Poor appetite or overeating Not at all 04/29/2025 3: 04 PM Taty Stafford MD Feeling bad about yourself - or that you are a failure or have let yourself or your family down Not at all 04/29/2025 3:04 PM LAVONNET Milton Hudson MD Trouble concentrating on things, such as reading the newspaper or watching television Not at all 04/29/2025 3:04 PM Milton Stafford MD Moving or speaking so slowly that [...] Score 0 04/29/2025 2:29 PM EDT Lesia Blanton MA documented as of this encounter Plan of Treatment Not on file documented as of this encounter Visit Diagnoses Not on filedocumented in this encounter Additional Health Concerns Assessment Noted Time PHQ-9 Depression Total Score: 0 04/29/20 25 3:04 PM EDT documented as of this encounter Care Teams Photographic Process Attendant Relationship Specialty Start Date End Date Taty Hudson MD [address] [place] [phone] PCP - General Family Medicine 09/16/20[place] [address] [place] [address] Gastroenterology 08/02/24 documented as of this encounter
--- OUTSIDE RECORDS SUMMARY | 2025-04-29 18:32 | XMS_ITS | Clinical Summary ---
Author Organization [employer] Address [address] [facility] [address] [place] [address] Care Team Providers Care Opticianry Teacher Name Role Phone Taty Hudson MD Primary Care Provider [phone]- [phone] November Allergies No known active allergies Medications simethicone (Mylicon,Gas-X) 180 MG capsuleIndicati ons:Bloating symptom Take 1 capsule (180 mg) by mouth every 8 (eight) hours if needed for flatulence. 90 capsule 03/27/20 24 Active famotidine (Pepcid) 20 MG tabletIndicatio ns:Bloating symptom Take 1 tablet (20 mg) by mouth 2 times daily. 60 tablet 03/27/20 24 Active senna (Senokot) 8.6 MG tablet Take 1 tablet (8.6 mg) by mouth at bedtime. 60 tablet 2 04/29/20 25 025 Active glycerin (Adult) 2 g suppository Insert 1 suppository (2 g) into the rectum if needed each day for constipation for up to 10 days. 30 suppository 2 04/29/20 25 025 Active metroNIDAZOLE (Metrogel) 0.75 % vaginal gelIndications: Bacterial Vaginosis Insert one applicator into vagina at bedtime for 7 nights 45 g 04/29/20 25 Active Active Problems Problem Noted Date Diagnosed Date Pap smear for cervical cancer screening 04/29/20 Assessment & Plan (04/29/2025 6:23 AM EDT): Pap with HPV testing done STI testing offered, PreP offered Preventative care and harm reduction discussed Generalized abdominal pain 03/27/2024 Overview (08/02/2024): -Followed by [facility], note from 08/01/24 reviewed. H.pylori ordered Assessment & Plan (04/29/2025 6:23 AM EDT): Acute appendicitis 01/18/2024 Overview (01/18/2024): History of appendicitis 01/17/24 while visiting [place] Diagnosed on CT. Treated with antibiotics recommending follow up with surgery when returns. Cholesterolosis gallbladder 03/16/2023 Overview (03/16/2023): Visit with gnereal surgery 08/2022 Assessment & Plan (03/16/2023 9:05 AM EDT): Visit with gnereal surgery 08/2022 Gallbladder polyp 03/16/2023 Overview (03/16/2023): Visit with gnereal surgery 08/2022 Assessment & Plan (03/16/2023 9:05 AM EDT): Visit with gnereal surgery 08/2022 IUD (intrauterine device) in place 03/16/2023 Overview (04/29/2025): Mirena put in 05/2021. Assessment & Plan (03/16/2023 9:33 AM EDT): Mirena put in 2020. Other specified health status 03/15/2023 Overview (03/06/2024): -next physical exam due after 08/03/2023 -eye care list given 03/16/2023. -dental home [facility] -health care proxy Assessment & Plan (04/29/2025 6:23 AM EDT): Assessment & Plan (03/16/2023 9:33 AM EDT): -next physical exam due after 08/03/2023 -eye care list given 03/16/2023. -dental home is [facility] Presence of intrauterine contraceptive device Overview (08/03/2022): Haley placed 05/2020 by Breanna Perez CNM Assessment & Plan (08/03/2022 1:05 PM EST): Tomyfabio placed 05/2020 by Breanna Perez CNM Resolved Problems Problem Noted Date Diagnosed Date Resolved Date Bloating symptom 03/27/2024 10/14/2024 Assessment & Plan (03/27/2024 3:22 PM EDT): I advise patient to avoid NSAIDs, spicy and acid food, I advise to eat at the same time every day, I advise to elevate the head of the bed and take medications as prescribe Vaginal discharge 03/27/2024 10/14/2024 Assessment & Plan (03/27/2024 3:20 PM EDT): BV done patient will be contacted with results Right knee pain 03/16/2023 10/14/2024 Overview (03/16/2023): Exam with mild crepitus. Referral to PT 03/16/2023. Assessment & Plan (03/16/2023 9:34 AM EDT): Exam with mild crepitus. Referral to PT 03/16/2023. Gallstone 07/27/2022 01/21/2025 Encounters Date Type Department Care Team Description 04/29/2025 2:15 PM EDT Office Visit [facility] [address] [place] [phone] Taty Hudson MD Pap smear for cervical cancer screening (Primary Dx); Generalized abdominal pain; Other specified health status; Routine screening for STI (sexually transmitted infection); Dietary counseling; Exercise counseling; IUD (intrauterine device) in place; Iron deficiency; Screening cholesterol level; Bacterial vaginosis 04/29/2025 Travel 04/28/[address] [phone] Taty Hudson MD CHART PREP 04/22/2025 Travel 04/22/2025 Patient Outreach [address] [address] Taty Hudson MD Pre-visit Planning (Unable to complete screening due to being at work) from Last 3 Months Immunizations Immunization Administration Dates Next Due DTaP 07/09/2007, 5,2003,09/22,2003 HPV 9-Valent 11/15/2015 HPV, Quadrivalent 08/31/2016 Hep A, ped/adol, 2 dose 11/30/2016,11/15/2015 Hep B, Adolescent or Pediatric 6,04/30/2015,2003,07/21,2003 IPV 07/09/2007, 5,2003,07/21 Influenza injectable quadriv alent preservative free 05/29/2023,06/01/2021,07/15/2020,07/07,06/11/2018,06/07/2017 Influenza, injectable, quadr ivalent, preservative free, pediatric 08/31/2016 Influenza, seasonal, injecta ble, preservative free 06/25/2024,08/31/2016 MMR 04/30/2015,05/03/2005 Meningococcal MCV4O 08/31/2016 Meningococcal MCV4P ACYW-135 03/10/2021 Pfizer Covid-19 Vaccine 12+ 05/29/2023,1 ,01/21/2021,12/31 Pfizer Covid-19 Vaccine 12+ Bivalent 06/21/2022 TD (adult), 2 Lf tetanus tox oid, preservative free, adsorbed 04/30/2015 Tdap 11/15/2015 Varicella 11/15/2015,04/30/2015 Family History Medical History Relation Name Comments Coronary artery disease Father Diabetes type II Father Hypertension Father dyslipidemia Father No Known Problems Mother Colon cancer Paternal Grandfather Relation Name Status Comments Father Mother Paternal Grandfather Social History Tobacco Use Types Packs/Day Years Used Date Smoking Tobacco: Never Passive Smoke Exposure: Never Smokeless Tobacco: Never Tobacco Cessation:Counseling Given: Not Answered Alcohol Use Standard Drinks/Week Comments Never 0 (1 standard drink = 0.6 oz pur e alcohol) Depression Answer Date Recorded Patient Health Questionnaire-9 Score 0 04/29/2025 Patient Health Questionnaire-9 Score 0 04/29/2025 Last PHQ-9: Questionnaire Data Not on file 0 04/29/2025 Housing Stability Answer Date Recorded What is your housing situation today? I have marcus mario 04/29/[address] you li [...] Orientation Straight 06/12/2022 10 :31 AM EDT Last Filed Vital Signs Vital Sign Reading [...] Mass Index 32 04/29/2025 2:02 PM EDT Plan of Treatment Health Maintenance Due Date Last Done Comments Meningococcal B Vaccine (1 of 2 - Standard) 2019 Chlamydia and Gonorrhea Screening 03/16/2024 03/16/2023, 10/19/2021, 06/01/2021 Pap Smear 2024 COVID-19 Vaccine ( season) 2025 05/29/2023, 06/21/2022, 08/10/2021, Additional history exists Influenza Vaccine (#1) 2025 , 05/29/2023, 06/01/2021, Additional history exists DTaP/Tdap/Td Vaccines (7 - Td or Tdap) 11/14/2025 11/15/2015, 04/30/2015, 07/09/2007, Additional history exists Disability Screening 04/22/2026 04/22/2025 Alcohol/Substance Use Screening 04/29/2026 04/29/2025 Depression Screening 04/29/2026 04/29/2025, 04/29/20 25 Family Planning (PISQ) 04/29/2026 04/29/2025 SDOH Screening 04/29/2026 04/29/2025 Tobacco Screening 04/29/2026 04/29/2025 Zoster Vaccines (1 of 2) 2053 RSV Patients and Patients Aged 60 years or older (1 - 1-dose 75+ series) 2078 IPV Vaccines Completed 07/09/2007, 04/14, 2003, Additional history exists Hepatitis B Vaccines Completed 11/15/2015, 04/30/2015, 2003, Additional history exists HPV Vaccines Completed 08/31/2016, 11/15/2015 Hepatitis A Vaccines Completed 11/30/2016, 11/15/19 16 Meningococcal Vaccine Completed 03/10/2021, 017 HIV Screening Completed 08/03/2022 Hepatitis C Screening Completed 08/03/2022 HIB Vaccines Aged Out No longer eligi ble based on patient's age to complete this topic Pneumococcal Vaccine: Pediatrics (0 to 5 Years) and At-Risk Patients (6 to 49) Years Aged Out No longer eligible based on patient's age to complete this topic RSV under 20 months Aged Out No longe r eligible based on patient's age to complete this topic Rotavirus Vaccines Aged Out No longer eligible based on patient's age to complete this topic Procedures Procedure Name Priority Date/Time Associated Diagnosis Comments FERRITIN Routine 04/29/2025 3:07 PM EDT Iron deficiency CBC Routine 04/29/2025 3:07 PM EDT Iron deficiency LIPID PANEL, STANDARD Routine 04/29/2025 3:07 PM EDT Screening cholesterol level CHLAMYDIA/N. GONORRHOEAE RNA, TMA, UROGENITAL Routine 03/16/2023 9:56 AM EDT Routine screening for STI (sexually transmitted infection) HEPATITIS C AB W/REFL TO HCV RNA, QN, PCR Routine 08/03/2022 1:30 PM EST Screening examination for sexually transmitted disease HIV 1/2 ANTIGEN/ANTIBODY, FOURTH GENERATION W/RFL Routine 08/03/2022 1:30 PM EST Screening examination for sexually transmitted disease from Last 3 Months or Most Recently Relevant to Health Maintenance Results * (ABNORMAL) CBC (04/29/2025 3:07 PM EDT) White Blood Count 4.8 4.8 - 10.8 X10*3/uL [facility] Red Blood Count 4.48 4.20 - 5.50 X10*6/uL [facility] Hemoglobin 11.6(L) 12.0 - 16.0 g/dl [facility] Hematocrit 37.0 37.0 - 47.0 % [facility] Mean Corpuscular Volume 82.6 80.0 - 98.0 fL [facility] Mean Corpuscular Hemoglobin 25.9(L) 27.0 - 33.0 pg [facility] Mean Corpuscular HGB Conc 31.4 31.0 - 35.0 g/dl [facility] Red Cell Distribution Width 12.5 11.0 - 16.0 % [facility] Platelet Count 211 160 - 400 X10*3/uL [facility] Mean Platelet Volume 13.0(H) 9.4 - 12.3 fL [facility] NRBC Pct Auto 0.0 0.0 - 0.2 /100WBC [facility] NRBC Abs Auto 0.000 0.0 - 0.012 X10*3/uL [facility] Blood Venous blood specimen / Unknown 04/29/2025 3:07 PM EDT 04/29/2025 4:03 PM EDT Taty Hudson MD LAB BLOOD ORDERABLES Final Result Performing Organization Address City/[facility]/ZIP Co de Phone Number [facility] [address] [place] [phone] * Ferritin (04/29/2025 3:07 PM EDT) Ferritin 34 10 - 122 ng/mL [facility] Blood Venous blood specimen / Unknown 04/29/2025 3:07 PM EDT 04/29/2025 4:03 PM EDT Taty Hudson MD LAB BLOOD ORDERABLES Final Result [facility] [address] [place] [phone] * (ABNORMAL) Lipid Panel, Standard (04/29/2025 3:07 PM EDT) Triglycerides 58 <150 mg/dL [facility] Comment:Desirable Triglyceri de: less than 150 mg/dLBorderline High Triglyceride 150-199 mg/dLHigh Triglyceride: 200-499 mg/dLVery High Triglyceride: greater than or equal to 5OO mg/dL Cholesterol 162 <200 mg/dL [facility] Comment:Desirable Cholestero l: less than 200 mg/dLBorderline High Cholesterol: 200-239 mg/dLHigh Cholesterol: greater than 239 mg/dL LDL Cholesterol Calculated 110(H) <100 mg/dL [facility] Comment:Desirable LDL: less than 100 mg/dLNear Optimal/Above Optimal LDL: 110- 129 mg/dLBorderline High LDL: 130-159 mg/dLHigh LDL: 160-189 mg/dLVery High LDL: greater than or equal to 190 mg/dL HDL Cholesterol 41 >40 mg/dL [facility] Comment:Desirable HDL: great er than 40 mg/dL Note: This HDL assay may give artificially low results in patients with liver disease. Blood Venous blood specimen / Unknown 04/29/2025 3:07 PM EDT 04/29/2025 4:03 PM EDT Taty Hudson MD LAB BLOOD ORDERABLES Final Result [facility] [address] [place] [phone] * Chlamydia/N. Gonorrhoeae RNA, TMA, Urogenitial (03/16/2023 9:56 AM EDT) CT PCR NOT DETECTED Not Detect. [facility] Comment:A not detected test result does not exclude the possibilityof infection because test results can be affected byimproper specimen collection, concurrent antibiotic therapy,or the number of organisms in the specimen which may bebelow the sensitivity of the test. As with many diagnostictests, results from the Xpert CT/NG assay should beinterpreted in conjunction with other laboratory andclinical data available to the clinician.Xpert CT/NG performance has not been evaluated in patientsless than 14 years of age. The assay should not be used forthe evaluationof suspected sexual abuse or for other medico-legalindications. Additional testing is recommended in anycircumstance when false positive or false negative resultscould lead to adverse medical, social or psychologicalconsequences. NG PCR NOT DETECTED Not Detect. [facility] Comment:A not detected test result does not exclude the possibilityof infection because test results can be affected byimproper specimen collection, concurrent antibiotic therapy,or the number of organisms in the specimen which may bebelow the sensitivity of the test. As with many diagnostictests, results from the Xpert CT/NG assay should beinterpreted in conjunction with other laboratory andclinical data available to the clinician.Xpert CT/NG performance has not been evaluated in patientsless than 14 years of age. The assay should not be used forthe evaluationof suspected sexual abuse or for other medico-legalindications. Additional testing is recommended in anycircumstance when false positive or false negative resultscould lead to adverse medical, social or psychologicalconsequences. Urine, Random 03/16/2023 9:5 6 AM EDT 03/16/2023 11:10 AM EDT Narrative [facility] - 03/16/2023 12:56 PM EDT Urine Taty Hudson MD LAB MICROBIOLOGY - GENERAL ORDERABLES Final Result [facility] [address] [place] [phone] * Hepatitis C Antibody with Reflex to HCV, RNA, Quantitative, Real-Time PCR (08/03/2022 1:30 PM EST) Hepatitis C Antibody NON-REACT JANELLE NON-REACT JANELLE [employer] [place] [facility] Index 0.05 <1.00 [employer] [place] [facility] Comment: HCV antibody was non-reactive. There is no laboratory evidence of HCV infection. In most cases, no further action is required. However, if recent HCV exposure is suspected, a test for HCV RNA (test code 01164) is suggested. For additional information please refer to http://[employer]/faq/KQN67p3 (This link is being provided for informational/ educational purposes only.) Blood Venous blood specimen / Unknown 08/03/2022 1:30 PM EST 08/03/2022 1:31 PM EST Narrative [facility] - 08/04/2022 1:05 PM EST FASTING:YES FASTING: YES us Taty Hudson MD LAB BLOOD ORDERABLES Final Result [facility] [address] [facility], [place] [address] [employer] [place] [facility] [address] [facility], (N[address]2) [place] [address] * HIV-1/2 Antigen and Antibodies, Fourth Generation, with Reflexes (08/03/2022 1:30 PM EST) HIV Antigen/Antibody, 4th Generation NON-REAC TIVE NON-REAC TIVE [facility] Comment: HIV-1 antigen and HIV-1/HIV-2 antibodies were not detected. There is no laboratory evidence of HIV infection. PLEASE NOTE: This information has been disclosed to you from records whose confidentiality may be protected by state law. If your state requires such protection, then the state law prohibits you from making any further disclosure of the information without the specific written consent of the person to whom it pertains, or as otherwise permitted by law. A general authorization for the release of medical or other information is NOT sufficient for this purpose. For additional information please refer to http://[employer]/faq/BRW750 (This link is being provided for informational/ educational purposes only.) The performance of this assay has not been clinically validated in patients less than 2 years old. Blood Venous blood specimen / Unknown 08/03/2022 1:30 PM EST 08/03/2022 1:31 PM EST Narrative [facility] - 08/04/2022 1:05 PM EST FASTING:YES FASTING: YES us Taty Hudson MD LAB BLOOD ORDERABLES Final Result [facility] [address] [facility], [address], [place] [address] [facility] [address] [facility], (Nl2) [place] [address] from Last 3 Months or Most Recently Relevant to Health Maintenance [place] [place] [address] C3 Care Teams Opticianry Teacher Relationship Specialty Start Date End Date Tristan, MD Taty [address] [place] [id number] PCP - General Family Medicine 09/16/20November [address] [place] [address] Drive 3rd [place] [address] Gastroenterology 08/02/24
--- OUTSIDE RECORDS SUMMARY | 2025-04-29 18:32 | XMS_ITS | Encounter Summary ---
Author Organization [employer] Address [address] [place] [address] Care Team Providers Care Cytology Technologist Name Role Phone Taty Hudson MD Primary Care Provider [phone]- [phone] GlassNovember Unavailable Encounter Details Date Type Department Care Team (Late st Contact Info) Description 10/14/2024 Orders Only [facility] [address] [place] [address] [phone] Taty Hudson MD [address] [place], [place] [phone] Social History Tobacco Use Types Packs/Day Years Used Date Smoking Tobacco: Never Passive Smoke Exposure: Never Smokeless Tobacco: Never Alcohol Use Standard Drinks/Week Comments Never 0 (1 standard drink = 0.6 oz pur e alcohol) Depression Answer Date Recorded Patient Health Questionnaire-9 Score 0 03/27/2024 Patient Health Questionnaire-9 Score 0 03/27/2024 Last PHQ-9: Questionnaire Data Not on file 0 03/27/2024 Housing Stability Answer Date Recorded What is your housing situation today? I have marcus martin 05/29/[address] you li ve. Do you have problems with any of the following? None of the above 05/29/2023 Food Insecurity Answer Date Recorded Within the past 12 months, y ou worried that your food would run out before you got money to buy more: Never True 05/29/2023 Within the past 12 months,th e food you bought just didn't last and you didn't have enough money to get more: Never True Transportation Answer Date Recorded In the past 12 months, has l ack of transportation kept you from medical appts, meetings, work or from getting things needed for daily living? No 05/29/2023 Utilities Answer Date Recorded In the past 12 months, has t he [employer], gas, oil or water company threatened to shut off services in your home? No 05/29/2023 Depression Answer Date Recorded Patient Health Questionnaire-2 Score 0 03/27/2024 Comments Unknown Sex and Gender Information Value Date Recorded Sex Assigned at Female 06/12/2022 10:31 AM EDT Legal Sex Female 10:31 AM EDT Gender Identity Female 06/12/2022 10:31 AM EDT Sexual Orientation Straight 06/12/2022 10 :31 AM EDT documented as of this encounter Plan of Treatment Not on file documented as of this encounter Visit Diagnoses Not on filedocumented in this encounter Additional Health Concerns Assessment Noted Time PHQ-9 Depression Total Score: 0 03/27/20 24 9:38 AM EDT documented as of this encounter Care Teams Cytology Technologist Relationship Specialty Start Date End Date Taty Hudson MD [address] [place] [phone] PCP - General Family Medicine 09/16/20November [address] [place] [address] [address] [place] [address] Gastroenterology 08/02/24 documented as of this encounter
--- OUTSIDE RECORDS SUMMARY | 2025-04-29 18:32 | XMS_ITS | Encounter Summary ---
Author Organization [employer] Address [address] [facility] 7 [place] [address] Care Team Providers Care Ob Tech Name Role Phone Taty Hudson MD Primary Care Provider [phone]- [phone] November Reason for Visit * Reason Onset Date Comments CHART PREP 04/28/2025 Encounter Details Date Type Department Care Team (Late st Contact Info) Description 04/28/2025 Telephone [facility] [address] [place] [address] Taty Hudson MD [address] [place], [place] [phone] CHART PREP Social History Tobacco Use Types Packs/Day Years [...] not want or need it 04/13 Comments Unknown Sex and Gender Information Value Date Recorded Sex Assigned at Female 06/12/2022 10:31 AM EDT Legal Sex Female 10:31 AM EDT Gender Identity Female 06/12/2022 10:31 AM EDT Sexual Orientation Straight 06/12/2022 10 :31 AM EDT documented as of this encounter Miscellaneous Notes * Telephone Encounter - Abelino Grajeda [place] - 04/28/2025 6:55 PM EDT Chart Prep Labs: not applicable Images: not applicable Referrals: not applicable Vaccines due: Covid and Flu Screenings: pap smear and LMP Overdue care gaps: SBIRT, SDOH, PHQ-9, and ROC-7 documented in this encounter Plan of Treatment Not on file documented as of this encounter Visit Diagnoses Not on filedocumented in this encounter Additional Health Concerns Assessment Noted Time PHQ-9 Depression Total Score: 0 03/27/20 24 9:38 AM EDT documented as of this encounter Care Teams Ob Tech Relationship Specialty Start Date End Date Taty Hudson MD [address] [place] [phone] PCP - General Family Medicine 2/4/[address] Glass[address] [place] [address] Drive 3rd [place] [address] Gastroenterology 08/02/24 documented as of this encounter
[2025-04-30 04:41] LABS: Syphilis Screen Nonreactive (Nonreactive)
[2025-04-30 05:38] LABS: HIV Num 1 0.04 S/CO (0.00-0.99); ~HepC Num1 0.08 S/CO (0.00-0.79); ~Hepatitis C Antibody Nonreactive (Nonreactive)
[2025-05-01 20:03] LABS: C. trachomatis RNA TMA NOT DETECTED (NOT DETECTED); N. gonorrhoeae RNA TMA NOT DETECTED (NOT DETECTED); Trichomonas (NAAT) NOT DETECTED (NOT DETECTED)
== END 2025-04-29 15:00 | disposition home or self-care (01) ==
LOC: HO.HHCL 14:59
PROVIDERS: PCP Family Medicine; Visit Provider Family Medicine
DX: Z13.220 Encounter for screening for lipoid disorders (principal); Z11.3 Encounter for screening for infections with a predominantly sexual mode of transmission; Z11.8 Encounter for screening for other infectious and parasitic diseases; Z12.4 Encounter for screening for malignant neoplasm of cervix; E61.1 Iron deficiency
CPT/HCPCS: 36415; 80061; 82728; 85027; 86780; 86803; 87389; 87491; 87591; 87661; 88175